=== PATIENT | male | born 1980 | race Caucasian/White ===

== ENCOUNTER 2022-05-19 04:07 | Emergency (ER) | payer SELFPAY ==
[~2022-05-19] VITALS: Ht 175.3 cm; Wt 72.0 kg
[~2022-05-19 04:07] MED LIST: AMOXICILLIN500 MG OR; AMOXICILLIN500 MG PO; LORTAB 7.57.5 MG PO; MOTRIN800 MG PO; PENICILLN VK500 M1 PO; PERCOCET 5/325M1 TAB OR; ULTRAM50 M1 PO
[2022-05-19 06:43] LABS: HEMATOCRIT 33.8 % (39.0-50.0); HEMOGLOBIN 11.6 g/dl (14.0-18.0); IMMATURE GRANULOCYTES 0.2 % (0.0-5.0); MEAN CELL VOLUME 77.3 fL CALC (80.0-100.0); MEAN CORPUSCULAR HGB 26.5 pG CALC (26.0-32.0); MEAN CORPUSCULAR HGB CONC 34.3 g/dL CAL (32.0-36.0); NEUT# 3.69 thou/uL (1.82-7.42); RED BLOOD COUNT 4.37 mill/uL (4.70-6.10); RED CELL DISTRI WIDTH 14.4 % (11.5-15.5)
[2022-05-19 06:54] LABS: ALBUMIN 3.6 g/dL (3.2-5.0); ALKALINE PHOSPHATASE 92 u/l (38-126); ANION GAP 15 (6-22 (CALC)); BILIRUBIN, TOTAL 0.7 mg/dL (0.0-1.4); BUN 15 mg/dL (9-20); BUN/CREATININE RATIO 18 (12-20 (CALC)); CARBON DIOXIDE 26 mmol/l (22-30); CHLORIDE 94 mmol/l (95-108); CREATININE 0.8 mg/dL (0.7-1.3); GFR FOR AFR.AMER. > 60 ML/MIN (>=60 (CALC)); GFR OTHER RACES > 60 ML/MIN (>=60 (CALC)); POTASSIUM 4.4 mmol/l (3.5-5.1); SGOT/AST 54 u/l (17-59); SODIUM 130 mmol/l (137-146); TOTAL PROTEIN 7.5 g/dL (6.3-8.2)
[2022-05-19] MEDS ORDERED: DOXY-CAPS100 MG PO (08:38)
[2022-05-19 08:45] VITALS: BP 122/77
== END 2022-05-19 08:45 | disposition home or self-care (01) | DRG 313 ==
LOC: ED 04:43
PROVIDERS: Emergency Medicine
DX: R07.89 Other chest pain (principal); Z20.822 Contact with and (suspected) exposure to COVID-19; F17.210 Nicotine dependence, cigarettes, uncomplicated
CPT/HCPCS: Q9967

== ENCOUNTER 2022-07-02 10:19 | Emergency (ER) | payer SELFPAY ==
[~2022-07-02] VITALS: Ht 175.3 cm; Wt 72.0 kg
[~2022-07-02 10:19] MED LIST changes: +DOXY-CAPS100 MG PO
[2022-07-02 11:35] VITALS: BP 118/65
== END 2022-07-02 11:48 | disposition home or self-care (01) | DRG 951 ==
LOC: ED 10:19
DX: Z02.89 Encounter for other administrative examinations (principal); F17.200 Nicotine dependence, unspecified, uncomplicated

== ENCOUNTER 2023-03-08 18:10 | Emergency (ER) | payer OTHER ==
[~2023-03-08] VITALS: Ht 175.3 cm; Wt 72.4 kg
[2023-03-08 19:00] VITALS: BP 110/71
== END 2023-03-08 19:15 | disposition left against medical advice (07) | DRG 392 ==
LOC: ED 18:10
DX: R10.32 Left lower quadrant pain (principal); F17.200 Nicotine dependence, unspecified, uncomplicated; Z53.29 Procedure and treatment not carried out because of patient's decision for other reasons